=== PATIENT | female | born 1970 | race Caucasian/White ===

== ENCOUNTER 2017-05-11 18:16 | Emergency (ER) | payer BC ==
[~2017-05-11] VITALS: Ht 172.7 cm; Wt 108.9 kg
[~2017-05-11 18:16] MED LIST: ADVAIR 250-501 EACH; ANTIVERT25 MG PO; BACTRIM DS TAB1 EACH PO; BENTYL20 MG PO; BYSTOLIC 5 MG5 M1 PO; CARAFATE 1 GM TA1 GM PO; CARISOPRODOL 3350 M1 PO; CEFUROXIME250 MG PO; CELEXA40 MG; CEPHALEXIN 500500 M3 PO; CEPHALEXIN500 MG PO; CITRATE OF MAG300 ML PO; CYCLOBENZAPRINE5 MG PO; DEPAKOTE 250MG250 M1 PO; DILTIAZEM 24HR120 MG PO; DOXYCYCLINE 10100 M1 PO; DUONEB 2.5-0.5 M3 ML INH; FLEXERIL PO; FLONASE 0.05%50 MCG NASAL; HYDROCODONE-AP1 EAC6 PO; HYDROCODONE-APA1 TA1 PO; HYDROXYZINE HCL25 M1; KEFLEX500 MG PO; LASIX 20 MG TAB20 MG PO; LASIX 40 MG TAB40 M2 PO; LATUDA120 MG PO; LATUDA80 MG PO; LEVAQUIN 750 M750 MG PO; LEXAPRO20 MG PO; LOPRESSOR25 PO; MEDROLDOSEPACK PO; MINOCIN50 MG PO; MYSOLINE50 MG; NAPROSYN500 MG PO; NEURONTIN 300300 M1 PO; NEURONTIN600 MG PO; NORCO 5-325 TA1 EACH PO; ONDANSETRON HCL4 M2 PO; PEPCID20 MG PO; PERCOCET PO; POTASSIUM20 PO; PRAZOSIN 1 MG CA1 M1 PO; PREDNISONE 10 M10 MG PO; PREDNISONE 20 M20 MG PO; PRILOSEC 20 MG20 MG PO; PROAIR HFA8.5 GM INH; PROMETHAZINE/C118 ML PO; PROTONIX 20 MG20 M1 PO; SYMBICORT160 MCG/4. INH; TAMIFLU75 MG PO; TESSALON PERLE100 MG PO; TRAZODONE HCL100 MG PO; VENTOLIN17 GM INH; VICODIN 5-5001 EACH; VIRTUSSIN AC L118 ML PO; XANAX 0.5 MG0.5 MG PO; ZOFRAN ODT4 MG PO; ZOFRAN4 MG PO; ZPAK PO; xolair
[2017-05-11 19:25] LABS: INFLUENZA A ANTIGEN None Detected (None Detect); INFLUENZA B ANTIGEN None Detected (None Detect)
[2017-05-11] MEDS ORDERED: DOXYCYCLINE 10100 MG PO (19:30)
[2017-05-11] MEDS ORDERED: PREDNISONE 10 M10 MG PO (19:30)
[2017-05-11] MEDS ORDERED: TESSALON PERLE100 MG PO (19:30)
[2017-05-11] MEDS ORDERED: VENTOLIN HFA 1818 GM INH (19:30)
[2017-05-11 19:43] VITALS: BP 125/68
== END 2017-05-11 19:45 | disposition home or self-care (01) ==
LOC: M.ERS 18:16
PROVIDERS: Physician Assistant
DX: J40 Bronchitis, not specified as acute or chronic (principal); K58.9 Irritable bowel syndrome, unspecified; F41.9 Anxiety disorder, unspecified; F31.9 Bipolar disorder, unspecified; F43.10 Post-traumatic stress disorder, unspecified; I10 Essential (primary) hypertension; Z86.2 Personal history of diseases of the blood and blood-forming organs and certain disorders involving the immune mechanism; Z90.89 Acquired absence of other organs; Z90.49 Acquired absence of other specified parts of digestive tract; Z88.0 Allergy status to penicillin

== ENCOUNTER 2017-05-24 07:51 | Inpatient (IN) | payer BC ==
[~2017-05-24] VITALS: Ht 172.7 cm; Wt 108.9 kg
[~2017-05-24 07:51] MED LIST changes: +DOXYCYCLINE 10100 MG PO; +VENTOLIN HFA 1818 GM INH
[2017-05-24 07:54] VITALS: BP 129/72
[2017-05-24] MEDS ORDERED: LIPITOR 20 MG T20 M1 PO (08:00)
[2017-05-24 08:14] LABS: HEMATOCRIT 41.4 % (37.0-47.0); HEMOGLOBIN 13.8 gm/dL (12.0-15.0); MCH 28.3 pg (26.0-34.0); MCHC 33.4 g/dL (28.0-37.0); MCV 84.6 fL (80.0-100.0); MPV 7.7 fl. (7.2-11.1); NUCLEATED RBCS 0 /100WBC; PLATELET COUNT* 237 thou/uL (150-400); RBC 4.89 mil/uL (4.20-5.00); RDW-CV 13.8 % (10.5-14.5); WBC 10.9 thou/uL (4.0-11.0)
[2017-05-24 08:17] LABS: ANION GAP 6 mmol/L (7-16); BUN 20 mg/dL (7-18); CALCIUM 8.9 mg/dL (8.5-10.1); CHLORIDE 103 mmol/L (98-107); CO2 34 mmol/L (21-32); CREATININE 0.7 mg/dL (0.6-1.3); GLUCOSE 90 mg/dL (70-99); POTASSIUM 3.2 mmol/L (3.5-5.1); SODIUM 143 mmol/L (136-145)
[2017-05-24 08:19] LABS: INR 1.1; PROTIME 10.5 Seconds (9.20-11.50)
[2017-05-24 08:28] LABS: ALBUMIN 3.6 g/dL (3.4-5.0); ALKALINE PHOSPHATASE 74 U/L (46-116); LIPASE 220 U/L (73-393); NT-PRO BRAIN NAT PEPTIDE 198 pg/mL (<300); SGOT 17 U/L (15-37); SGPT 20 U/L (30-65); TOTAL BILIRUBIN 0.8 mg/dL (<0.1-1.0); TOTAL PROTEIN 7.1 g/dL (6.4-8.2); TROPONIN-I LEVEL <0.06 ng/mL (<0.06)
[2017-05-24 08:38] LABS: ABSOLUTE EOSINOPHILS 0.1 thou/uL (0.0-0.7); ABSOLUTE LYMPHOCYTES 1.2 thou/uL (0.8-5.3); ABSOLUTE MONOCYTES 0.2 thou/uL (0.0-1.2); ABSOLUTE NEUTROPHILS 9.4 thou/uL (1.6-8.1); PLATELET ESTIMATE ADEQUATE
[2017-05-24 10:30] VITALS: BP 124/64
--- NOTE | 2017-05-24 12:55 | EKG ---
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: MS : 1970 Requested By: Richar Galicia Order Number: [id number] MD: Minesh Rowland Measurements Intervals [place] Rate: 62 P: 38 [place]: 166 QRS: -2 QRSD: 105 T: 39 QT: 419 QTc: 426 Interpretive Statements Sinus rhythm Borderline T wave abnormalities Compared to ECG 01/21/2017 12:20:03 t wave changes less prominent Electronically Signed On 05-24-2017 12:55:19 GLUING MACHINE OPERATOR ELECTRONIC by Minesh Rowland [email or web address] <ELECTRONICALLY SIGNED> By: Minesh Rowland MD, [facility] 05/24/17 1255 0755 0755 Minesh Rowland MD, [facility] /EPI
[2017-05-24 15:39] VITALS: BP 130/77
--- NOTE | 2017-05-24 15:58 | 2DMMODE ---
[place] [address] 2 D/M-MODE ECHOCARDIOGRAM Name: NYASIA BOND Room: [address] IN [facility]#: [id number] Admission: 05/24/17 Attend Phys: Sanjay Denney, Discharge: Date of : 70 Date of Service: 05/24/17 1558 Report #: [id number] THIS REPORT FOR: //name// APPROVED REPORT Study performed: 05/24/2017 11:39:15 EXAM: Comprehensive 2D, Doppler, and color-flow Echocardiogram Patient Location: In-Patient Room #: 209 BSA: 2.19 HR: 52 bpm BP: 124/64 mmHg Other Information Study Quality: Good Indications Chest Pain 2D Dimensions LVEF(%): 76.76 (>50%) IVSd: 10.79 (7-11mm) LVOT Diam: 20.93 (18-24mm) LVDd: 57.56 mm PWd: 9.79 (7-11mm) Ascending Ao: 32.23 (22-36mm) LVDs: 31.04 (25-40mm) Aortic Root: 30.58 mm Toribio's LVEF: 76.76 % Volumes Left Atrial Volume (Systole) LA ESV Index: 31.00 mL/m2 Aortic Valve AoV Peak Rangel.: 1.61 m/s AO Peak Gr.: 10.33 mmHg LVOT Max P.20 mmHg AO Mean Gr.: 5.61 mmHg LVOT Mean P.41 mmHg LVOT Max V: 1.14 m/s AO V2 VTI: 39.53 cm LVOT Mean V: 0.70 m/s STEPHANIE (VTI): 2.53 cm2 LVOT V1 VTI: 29.08 cm Mitral Valve E/A Ratio: 1.37 MV Decel. Time: 217.55 [place] [address] 2 D/M-MODE ECHOCARDIOGRAM Name: NYASIA BOND Room: [address] IN .R.#: [id number] Admission: 05/24/17 Attend Phys: Sanjay Denney, Discharge: Date of : 70 Date of Service: 05/24/17 1558 Report #: [id number] MV E Max Rangel.: 0.85 m/s MV PHT: 63.09 ms MVA (PHT): 3.49 cm2 TDI E/Lateral E': 7.73 E/Medial E': 8.50 Medial E' Rangel.: 0.10 m/s Lateral E' Rangel.: 0.11 m/s Pulmonary Valve PV Peak Rangel.: 0.98 m/s PV Peak Gr.: 3.82 mmHg Tricuspid Valve TR Peak Gr.: 24.38 mmHg RVSP: 29.38 mmHg Left Ventricle The left ventricle is normal size. There is normal LV segmental wall motion. There is normal left ventricular wall thickness. Left ventricular systolic function is normal. LVEF is 55-60%. The left ventricular diastolic function is normal. Right Ventricle The right ventricle is normal size. The right ventricular systolic function is normal. Atria The left atrium size is normal. The right atrium size is normal. Aortic Valve The aortic valve is normal in structure. Trace aortic regurgitation. There is no aortic valvular stenosis. Mitral Valve The mitral valve is normal in structure. Mild mitral regurgitation. No evidence of mitral valve stenosis. Tricuspid Valve The tricuspid valve is normal in structure. Mild tricuspid regurgitation. The RVSP is __29.4 mmHg. Pulmonic Valve The pulmonary valve is normal in structure. There is no pulmonic valvular regurgitation[place] [address] 2 D/M-MODE ECHOCARDIOGRAM Name: NYASIA BOND [facility] Room: [address] IN .R.#: [id number] Admission: 05/24/17 Attend Phys: Sanjay Denney, Discharge: Date of : 70 Date of Service: 05/24/17 1558 Report #: [id number] The aortic root is normal in size. IVC is normal in size and collapses with >50% inspiration Pericardium There is no pericardial effusion. <Conclusion> The left ventricle is normal size. There is normal left ventricular wall thickness. Left ventricular systolic function is normal. LVEF is 55-60%. The left ventricular diastolic function is normal. Mild tricuspid regurgitation. The RVSP is __29.4 mmHg. Mild mitral regurgitation. <ELECTRONICALLY SIGNED> By: Blanco Dickerson MD, FACC 05/24/17 1558 1558 1558 Blanco Dickerson MD, FACC /INF
[2017-05-24 20:20] VITALS: BP 126/60
[2017-05-24] MEDS ORDERED: CEFUROXIME500 MG PO (23:06)
[2017-05-25] VITALS (10 sets, daily range): BP systolic 91–123; BP diastolic 36–63
[2017-05-25 05:13] LABS: ABSOLUTE EOSINOPHILS 0.1 thou/uL (0.0-0.7); ABSOLUTE LYMPHOCYTES 4.3 thou/uL (0.8-5.3); ABSOLUTE MONOCYTES 0.5 thou/uL (0.0-1.2); ABSOLUTE NEUTROPHILS 4.8 thou/uL (1.6-8.1); BASOPHILS 0.2 %; EOSINOPHILS 0.8 %; HEMATOCRIT 35.5 % (37.0-47.0); LYMPHOCYTES 44.4 %; MCH 28.2 pg (26.0-34.0); MCHC 33.2 g/dL (28.0-37.0); MCV 84.8 fL (80.0-100.0); MONOCYTES 4.8 %; MPV 8.4 fl. (7.2-11.1); NUCLEATED RBCS 0 /100WBC; PLATELET COUNT* 213 thou/uL (150-400); POLYS 49.8 %; RBC 4.19 mil/uL (4.20-5.00); RDW-CV 14.4 % (10.5-14.5); WBC 9.6 thou/uL (4.0-11.0)
[2017-05-25 05:22] LABS: APTT 26.3 Seconds (25.0-31.3); INR 1.1; PROTIME 10.4 Seconds (9.20-11.50)
[2017-05-25 05:27] LABS: HEMOGLOBIN 11.8 gm/dL (12.0-15.0)
[2017-05-25 05:45] LABS: ANION GAP 8 mmol/L (7-16); BUN 18 mg/dL (7-18); CALCIUM 8.6 mg/dL (8.5-10.1); CHLORIDE 105 mmol/L (98-107); CHOLESTEROL 159 mg/dL (<200); CO2 30 mmol/L (21-32); CREATININE 0.7 mg/dL (0.6-1.3); GLUCOSE 88 mg/dL (70-99); HDL CHOLESTEROL 54 mg/dL (>40); LDL CHOLESTEROL 94 mg/dL (<100); POTASSIUM 3.9 mmol/L (3.5-5.1); SODIUM 143 mmol/L (136-145); TC:HDL 2.9 Ratio (Not establshd); TRIGLYCERIDE 55 mg/dL (<150); VLDL 11 mg/dL (<40)
[2017-05-25 05:52] LABS: SERUM ASSESSMENT Clear
--- NOTE | 2017-05-25 17:39 | EKG ---
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: MAX : 1970 Requested By: Minesh Rowland Order Number: [id number] Haris MD: Blanco Dickerson Measurements Intervals [place] Rate: 47 P: 27 [place]: 171 QRS: 8 QRSD: 106 T: 30 QT: 500 QTc: 442 Interpretive Statements Sinus bradycardia Compared to ECG 05/24/2017 07:55:22 Sinus rhythm no longer present T-wave abnormality no longer present Electronically Signed On 05-25-2017 17:39:03 FITNESS STUDIES TEACHER by Blanco Dickerson [email or web address] <ELECTRONICALLY SIGNED> By: Blanco Dickerson MD, [facility] 05/25/17 1739 1637 1637 Blanco Dickerson MD, [facility] /EPI
[2017-05-26] VITALS (7 sets, daily range): BP systolic 89–106; BP diastolic 33–49
[2017-05-26 05:07] LABS: ABSOLUTE EOSINOPHILS 0.1 thou/uL (0.0-0.7); ABSOLUTE LYMPHOCYTES 2.8 thou/uL (0.8-5.3); ABSOLUTE MONOCYTES 0.3 thou/uL (0.0-1.2); ABSOLUTE NEUTROPHILS 3.4 thou/uL (1.6-8.1); BASOPHILS 0.4 %; EOSINOPHILS 1.5 %; HEMATOCRIT 34.7 % (37.0-47.0); HEMOGLOBIN 11.6 gm/dL (12.0-15.0); LYMPHOCYTES 41.7 %; MCH 28.6 pg (26.0-34.0); MCHC 33.4 g/dL (28.0-37.0); MCV 85.5 fL (80.0-100.0); MONOCYTES 4.8 %; MPV 7.9 fl. (7.2-11.1); NUCLEATED RBCS 0 /100WBC; PLATELET COUNT* 187 thou/uL (150-400); POLYS 51.6 %; RBC 4.06 mil/uL (4.20-5.00); RDW-CV 14.1 % (10.5-14.5); WBC 6.6 thou/uL (4.0-11.0)
--- NOTE | 2017-05-26 11:32 | CARD ---
[address] [address] CARDIAC CATH REPORT Name: VARUNNYASIA Room: 209 ADM IN .R.#: [id number] Admission: 05/24/17 Attend Phys: Sanjay Denney MD Discharge: Date of : 70 Report #: [id number] THIS REPORT FOR: //name// APPROVED REPORT Patient Details Patient Status: In-Patient Room #: 209 The patient is a 46 year-old female Event Personnel Minesh Rowland Railway Signal Electrician, Kathryn Grace RN RN, Laura Jimenes RN Monitor, Jeremías Bueno Scrub Procedures Performed Art Access - R radial artery , Right transradial approach, PTCA with Stenting, Left Ventriculogram, Left Heart Catheterization Indication Unstable angina , Positive stress test Risk Factors Hypercholesterolemia Admission/Lab Medications/Medications given during procedure Heparin Unfract., [place] [address] units Procedure Narrative The patient was brought electively to the Cardiac Catheterization Laboratory and was prepped and draped in a sterile manner. The right wrist was infiltrated with 1% Lidocaine subcutaneous anesthesia. A Slender Glidesheath sheath was inserted into the right radial artery. Coronary angiography was performed using coronary diagnostic catheters. The right coronary system was accessed and visualized with a JR4 5fr catheter. The left coronary system was accessed and visualized with a JL 3.5 5fr catheter. The left ventricle was accessed and visualized with a PC: Angled Pig 5fr catheter. Left ventricular/Aortic Valve gradient assessed via catheter pullback. Left ventriculogram was performed in CARLSON projection. Closure device was deployed with a 6 Fr Vasc-Band Lng 27cm. The patient tolerated the procedure well and there were no complications associated with the procedure. There was no hematoma. Intraoperative Conscious Sedation Sedation start time: 3:29 Case end Time: [place] [address] CARDIAC CATH REPORT Name: VARUNNYASIA MICHAEL Room: [address] IN [facility]#: [id number] Admission: 05/24/17 Attend Phys: Sanjay Denney MD Discharge: Date of : 70 Report #: [id number] 4:13 Fentanyl 50 mcg Versed 2 mg Fluoro Time: 6.8 minutes Dose: DAP 46477 cGycm2 140 mGy Contrast Type and Amount: Omnipaque 145 ml Coronary Angiography The patient's coronary anatomy is co- dominant. Yocha Dehe Artery Percent Stenosis Left Main: 0 % Prox LAD: 0 % Mid/Distal LAD: 80 % Circumflex: 0 % RCA: 0 % Ramus: % Left Ventriculography The left ventricle is normal in size with normal contractility. The left ventricular ejection fraction is estimated to be 55-60%. Left ventricular wall motion abnormalities are not present. There is no mitral insufficiency. Hemodynamics The aortic pressure is 104/60 mmHg with a mean of 79 mmHg. The left ventricular pressure is 93/3 mmHg with a mean of mmHg. The left ventricular end diastolic pressure is 6 mmHg. There was no gradient across the aortic valve upon pullback. Pullback from the left ventricle to the aorta revealed no gradient across the aortic valve. PCI Technique Lesion Anticoagulation was achieved with Heparin. pt was preloaded with 180 mg brilinta po Patient was preloaded with Heparin IV. Percutaneous coronary intervention was performed on the mid left anterior descending artery segment. The lesion stenosis prior to intervention was 80% with RICARDO 2 flow. A 6FR XB LAD 3.0 100CM Guide Catheter was used to engage the lm ostium. A IG: BMW 190cm Interventional Guidewire was used to cross the lesion. STENT DEPLOYMENT A drug-eluting stent Xience Alpine RX 3.0X15 was inserted and inflated up to 14.00atm for 20seconds. Repeat angiography revealed the following post-stent deployment results: 0% stenosis. Additional Inflation: 18.00atm for 14seconds. Final angiography reveals 0 % stenosis with RICARDO 3 [place] [address] CARDIAC CATH REPORT Name: NYASIA BOND Room: [address] IN .R.#: [id number] Admission: 05/24/17 Attend Phys: Sanjay Denney MD Discharge: Date of : 70 Report #: [id number] Conclusion 1. successful placement of a single drug eluting stent in the mid lad Recommendations Cardiac Rehabilitation Referral Aggressive Medical Therapy Medications Administered Ticagrelor <ELECTRONICALLY SIGNED> By: Minesh Rowland MD, [facility] 05/26/17 1131 1131 1131Dsofi Rowland MD, [facility] /INF
[2017-05-26] MEDS ORDERED: CEFUROXIME500 MG PO (13:24)
[2017-05-26] MEDS ORDERED: NITROGLYCERIN0.4 MG SUBLING (13:31)
[2017-05-26] MEDS ORDERED: BRILINTA90 MG PO (13:33)
[2017-05-26] MEDS ORDERED: LISINOPRIL20 MG PO (13:36)
--- NOTE | 2017-06-16 14:45 | EKG ---
[place] [address] ELECTROCARDIOGRAM REPORT Name: NYASIA BOND Room: [address] DIS IN M.R.#: [id number] Admission: 05/24/17 Attend Phys: Sanjay Denney MD Discharge: 05/26/17 Date of : 70 Report #: [id number] THIS REPORT FOR: //name// [facility] Test Date: 2017-05-26 Test Time: 08:28:44 Pat Name: NYASIA BOND Department: Room: [address] Gender: F Chocolate Finisher: : 1970 Requested By: Minesh Rowland Order Number: [id number] Reading MD: Measurements Intervals [place] Rate: 49 P: 33 [place]: 174 QRS: 9 QRSD: 117 T: 29 QT: 479 QTc: 433 Interpretive Statements Sinus bradycardia Nonspecific intraventricular conduction delay Compared to ECG 05/25/2017 16:37:42 Intraventricular conduction delay now present [email or web address] By: 1538 0828 Blanco Dickerson MD, FACC /EPI
== END 2017-05-26 13:42 | disposition home or self-care (01) | DRG 247 ==
LOC: M.ERS 07:51 → M.2W 09:48 → M.TBA-ER 09:48 → M.2W 10:42
PROVIDERS: Emergency Medicine; Internal Medicine Cardiovascular Disease; Nurse Practitioner Family; ADMIT Internal Medicine
PROC: 4A023N7 Measurement of Cardiac Sampling and Pressure, Left Heart, Percutaneous Approach (ICD-10-PCS; principal; 2017-05-26)
PROC: B2151ZZ Fluoroscopy of Left Heart using Low Osmolar Contrast (ICD-10-PCS; principal; 2017-05-26)
PROC: B2111ZZ Fluoroscopy of Multiple Coronary Arteries using Low Osmolar Contrast (ICD-10-PCS; principal; 2017-05-26)
PROC: 027034Z Dilation of Coronary Artery, One Artery with Drug-eluting Intraluminal Device, Percutaneous Approach (ICD-10-PCS; principal; 2017-05-26)
DX: I25.110 Atherosclerotic heart disease of native coronary artery with unstable angina pectoris (principal); J45.909 Unspecified asthma, uncomplicated; G89.29 Other chronic pain; M54.9 Dorsalgia, unspecified; F41.9 Anxiety disorder, unspecified; F31.9 Bipolar disorder, unspecified; K59.00 Constipation, unspecified; F43.10 Post-traumatic stress disorder, unspecified; I10 Essential (primary) hypertension; E78.5 Hyperlipidemia, unspecified; E66.9 Obesity, unspecified; Z68.36 Body mass index [BMI] 36.0-36.9, adult; Z90.49 Acquired absence of other specified parts of digestive tract; Z98.84 Bariatric surgery status; Z79.899 Other long term (current) drug therapy; Z88.0 Allergy status to penicillin

== ENCOUNTER 2017-06-10 14:51 | Inpatient (IN) | payer BC ==
[~2017-06-10] VITALS: Ht 172.7 cm; Wt 110.7 kg
[~2017-06-10 14:51] MED LIST changes: +BRILINTA90 MG PO; +CEFUROXIME500 MG PO; +LIPITOR 20 MG T20 M1 PO; +LISINOPRIL20 MG PO; +NITROGLYCERIN0.4 MG SUBLING
[2017-06-10 14:56] VITALS: BP 129/64; BP 170/88
[2017-06-10 15:36] LABS: ABSOLUTE EOSINOPHILS 0.2 thou/uL (0.0-0.7); ABSOLUTE LYMPHOCYTES 2.4 thou/uL (0.8-5.3); ABSOLUTE MONOCYTES 0.4 thou/uL (0.0-1.2); ABSOLUTE NEUTROPHILS 4.6 thou/uL (1.6-8.1); BASOPHILS 0.6 %; EOSINOPHILS 2.2 %; HEMATOCRIT 41.5 % (37.0-47.0); HEMOGLOBIN 13.8 gm/dL (12.0-15.0); LYMPHOCYTES 31.7 %; MCH 28.6 pg (26.0-34.0); MCHC 33.3 g/dL (28.0-37.0); MCV 85.9 fL (80.0-100.0); MONOCYTES 4.6 %; MPV 8.4 fl. (7.2-11.1); NUCLEATED RBCS 0 /100WBC; PLATELET COUNT* 229 thou/uL (150-400); POLYS 60.9 %; RBC 4.83 mil/uL (4.20-5.00); RDW-CV 14.4 % (10.5-14.5); WBC 7.6 thou/uL (4.0-11.0)
[2017-06-10 15:41] LABS: ANION GAP 7 mmol/L (7-16); APTT 26.6 Seconds (25.0-31.3); BUN 14 mg/dL (7-18); CALCIUM 9.3 mg/dL (8.5-10.1); CHLORIDE 105 mmol/L (98-107); CO2 32 mmol/L (21-32); CREATININE 0.8 mg/dL (0.6-1.3); GLUCOSE 66 mg/dL (70-99); POTASSIUM 3.5 mmol/L (3.5-5.1); PROTIME 9.9 Seconds (9.20-11.50); SODIUM 144 mmol/L (136-145)
[2017-06-10 15:52] LABS: ALBUMIN 4.2 g/dL (3.4-5.0); ALKALINE PHOSPHATASE 82 U/L (46-116); NT-PRO BRAIN NAT PEPTIDE 30 pg/mL (<300); SGOT 19 U/L (15-37); SGPT 17 U/L (30-65); TOTAL BILIRUBIN 0.6 mg/dL (<0.1-1.0); TOTAL PROTEIN 7.8 g/dL (6.4-8.2); TROPONIN-I LEVEL <0.06 ng/mL (<0.06)
[2017-06-10 20:03] VITALS: BP 118/71
[2017-06-10 21:00] VITALS: BP 118/38
[2017-06-10] MEDS ORDERED: XANAX 0.5 MG0.5 MG PO (23:17)
[2017-06-10] MEDS ORDERED: VICODIN ES 7.51 EACH PO (23:17)
[2017-06-10] MEDS ORDERED: OMEPRAZOLE 20 M20 M1 PO (23:18)
[2017-06-11] VITALS: BP 110/45
[2017-06-11 04:00] VITALS: BP 109/55
[2017-06-11 05:08] LABS: ABSOLUTE EOSINOPHILS 0.2 thou/uL (0.0-0.7); ABSOLUTE LYMPHOCYTES 2.9 thou/uL (0.8-5.3); ABSOLUTE MONOCYTES 0.3 thou/uL (0.0-1.2); ABSOLUTE NEUTROPHILS 2.9 thou/uL (1.6-8.1); BASOPHILS 0.3 %; EOSINOPHILS 2.4 %; HEMATOCRIT 35.8 % (37.0-47.0); LYMPHOCYTES 47.1 %; MCH 28.3 pg (26.0-34.0); MCHC 32.8 g/dL (28.0-37.0); MCV 86.1 fL (80.0-100.0); MONOCYTES 4.2 %; MPV 8.5 fl. (7.2-11.1); NUCLEATED RBCS 0 /100WBC; PLATELET COUNT* 197 thou/uL (150-400); RBC 4.16 mil/uL (4.20-5.00); RDW-CV 14.7 % (10.5-14.5); WBC 6.2 thou/uL (4.0-11.0)
--- NOTE | 2017-06-11 05:10 | NUR ---
RECEIVED REPORT FROM ER NURSE, CHOCO ROJAS, AT 1947. PT ARRIVED TO UNIT AT 1999. PT ORIENTED TO ROOM AND CALL LIGHT. NURSING ASSESSMENT COMPLETED, NIH SCORE 0 THIS SHIFT. PT ON TELE MONITOR TRACING SINUS RHTYHM THIS SHIFT. PT STATES SENSATION ON LEFT SIDE FACE DECREASING SINCE ADMIT. UNABLE TO FULLY EXPLAIN FEELING BUT STATED IT DID NOT FEEL NUMB. VITAL SIGNS STABLE THIS SHIFT, BEDSIDE SWALLOW ASSESSMENT PASSED, CALL LIGHT WITHIN REACH.
[2017-06-11 05:22] LABS: CALCIUM 8.8 mg/dL (8.5-10.1); CREATININE 0.8 mg/dL (0.6-1.3); POTASSIUM 3.8 mmol/L (3.5-5.1)
[2017-06-11 05:37] LABS: CHOLESTEROL 128 mg/dL (<200); HDL CHOLESTEROL 50 mg/dL (>40); LDL CHOLESTEROL 67 mg/dL (<100); TC:HDL 2.6 Ratio (Not establshd); TRIGLYCERIDE 59 mg/dL (<150); VLDL 12 mg/dL (<40)
[2017-06-11 05:48] LABS: SERUM ASSESSMENT CLEAR
[2017-06-11 05:50] LABS: HEMOGLOBIN 11.7 gm/dL (12.0-15.0)
--- NOTE | 2017-06-11 07:30 | NUR ---
CHANGE OF SHIFT, BEDSIDE REPORT GIVEN ASSUMED PATIENT CARE PATIENT SEEN IN BED, REQUESTS PAIN MEDICATION FOR GONG WILL CONTACT DR SNOW RANGER AND GIVE ADORE
[2017-06-11 08:00] VITALS: BP 103/54
[2017-06-11 12:22] VITALS: BP 119/50
--- NOTE | 2017-06-11 12:37 | EKG ---
[place] [address] ELECTROCARDIOGRAM REPORT Name: NYASIA BOND Room: [address] ADM IN ..#: [id number] Admission: 06/10/17 Attend Phys: Sanjay Denney MD Discharge: Date of : 70 Report #: [id number] THIS REPORT FOR: //name// [facility] ED Test Date: 2017-06-10 Test Time: 15:23:30 Pat Name: NYASIA BOND Department: Room: [facility] Gender: F Fine Dining Server: Riky TRACY : 1970 Requested By: Vero Hargrove Order Number: [id number] MD: Junito Patel Measurements Intervals [place] Rate: 63 P: 18 MA: 200 QRS: -3 QRSD: 105 T: 33 QT: 436 QTc: 447 Interpretive Statements Sinus rhythm Compared to ECG 05/26/2017 08:28:44 Sinus bradycardia no longer present T-wave abnormality no longer present Electronically Signed On 06-11-2017 12:37:14 CDT by Junito Patel [email or web address] <ELECTRONICALLY SIGNED> By: Junito Patel MD, [facility] 06/11/17 1237 1523 1523 Junito Patel MD, [facility] /EPI
[2017-06-11 12:48] VITALS: BP 119/50
--- NOTE | 2017-06-11 13:15 | NUR ---
PATIENT DCD TO HOME ALL DC INSTRUCTIONS GIVEN AND ACKNOWLEDGED SIGNED COPIES GIVEN IV AND HEART MONITOR REMOVED PERSONAL BELONGINGS RETURNED ASSISTED OUT VIA WC TO [facility] 3scale
--- NOTE | 2017-06-11 13:18 | NUR ---
OT SCREENS PT FOR OT SERVICES. PHYSICAL THERAPY REPORTS PT IS INDEPENDENT WITH AMBULATING AND SAFE AND NURSING REPORTS THAT PT IS INDEPENDENT WITH ADLS WITHIN THE ROOM. OT TALKS WITH PT TO MAKE SURE SHE DOES NOT HAVE ANY CONCERNS AND CHECKS SENSATION IN BOTH UE- HAS FULL SENSATION. OT EVALUATION IS NOT WARRENTED AT THIS TIME, BUT PLEASE CONSULT WITH OT IF THERE IS A CHANGE IN STATUS.
[2017-06-11 23:07] LABS: GLYCOHEMOGLOBIN (HGB A1C) 5.2 % (4.8-5.6)
--- NOTE | 2017-06-16 19:10 | CON ---
[address] [address] CONSULTATION Name: NYASIA BOND Room: [address] IN M.R.#: [id number] Admission: 06/10/17 Attend Phys: Sanjay Denney MD Discharge: 06/11/17 Date of : 70 Report #: [id number] THIS REPORT FOR: //name// CC: Sanjay Mendez DATE OF SERVICE: 06/11/2017 HISTORY OF PRESENT ILLNESS: This is a 46-year-old female patient who was evaluated by me because she had an episode where she had some headache as well as left-sided facial numbness. She indicates she has a longstanding history of migraine, but she usually does not have any neurological symptoms with that, but this time, she had headache. She had left facial numbness. She had some difficulty with swallowing and some ataxia. All the symptoms have resolved. When she had these symptoms, she had pretty severe symptoms. It started spontaneously without any trauma. REVIEW OF SYSTEMS: Indicate that this patient had a recent stent put in. She has been started on statin. She does have a history of plantar fasciitis, anxiety, depression, bipolar disorder. She said she had a uterine ablation now. She also had a gastric sleeve in the past. She does not know why she is developing coronary artery disease at such a young age, but indicate that she does have a family history of that. I carried out the 14-point review of system and this was the relevant 14-point review of system in this patient. PAST MEDICAL HISTORY: Positive for stent put in. FAMILY HISTORY: Positive for vascular disease. SOCIAL HISTORY: She does not smoke or drink any alcohol. PHYSICAL EXAMINATION: NEUROLOGIC: Indicate that this patient is alert and responsive. This patient's speech, concentration, fund of knowledge and memory is at her baseline. Cranial nerve examination 2-12 is unremarkable. She has a symmetrical strength, sensation, reflexes and tone in all 4 extremities. There is no meningeal sign. There is no carotid bruit. There is no cerebellar sign. There is no papilledema. GENERAL: She is reasonably well-developed individual who does not have any dysmorphic features of eyes, ears and face. HEENT: Her vision and hearing looks adequate. CARDIAC: Unremarkable. LUNGS: No respiratory difficulty or rhonchi. VITAL SIGNS: Her blood pressure is 103/54, respirations 18, pulse is 58, temperature is 98.7. [place] [address] CONSULTATION Name: NYASIA BOND Room: [address]#: [id number] Admission: 06/10/17 Attend Phys: Sanjay Denney MD Discharge: 06/11/17 Date of : 70 Report #: [id number] LABORATORY DATA: Indicate that one time, her CRP was 291. IMPRESSION: This patient episode may be related to her migraine. Possibility of posterior fossa transient ischemic attack was considered, but so far the workup is unremarkable. RECOMMENDATION: I had a long discussion with the patient. I discussed with her the indication, potential complications and alternative of multiple approaches. I discussed with her that the most accurate test to rule out the possibility of aneurysms or any pathology is an angiogram. But we discussed potential complication of that with the patient and she understands it and she is happy with the accuracy of the MRA and wants to skip the angiogram. I did discuss with her that she needs some further workup because of premature atherosclerotic disease, at least in the coronary artery. I would like to do homocysteine level in this patient, but that has to be done as an outpatient because of hospital policy. I asked her to make an appointment with us sometime next week and I would like to do KEVON, rheumatoid factor, sed rate, cardiolipin antibodies, homocysteine screening in this patient. She is already on statin and she is already on antiplatelet therapy, so I really do not think we need to do much until the blood workup shows something. She is agreeable with this plan. From my perspective, she can be dismissed and can follow up with me next week to get additional blood workup done and if she has any more episodes, she should call 911 and come to Emergency Room. More than 50 minutes of time was spent taking care of this patient today and majority of that time was spent counseling this patient on above matters and making the above plan. Thank you very much for this referral. <ELECTRONICALLY SIGNED> By: Neal Bryan MD 06/16/17 1910 1140 1217Neal Bryan MD /nt
== END 2017-06-11 13:30 | disposition home or self-care (01) | DRG 69 ==
LOC: M.ERS 14:51 → M.TBA-ER 17:21 → M.2W 20:21
PROVIDERS: Nurse Practitioner Family; ADMIT Internal Medicine
DX: G45.9 Transient cerebral ischemic attack, unspecified (principal); G43.909 Migraine, unspecified, not intractable, without status migrainosus; I25.10 Atherosclerotic heart disease of native coronary artery without angina pectoris; F31.9 Bipolar disorder, unspecified; F41.9 Anxiety disorder, unspecified; I10 Essential (primary) hypertension; F43.10 Post-traumatic stress disorder, unspecified; Z88.0 Allergy status to penicillin; Z95.5 Presence of coronary angioplasty implant and graft

== ENCOUNTER 2017-06-30 21:32 | Inpatient (IN) | payer BC ==
[~2017-06-30] VITALS: Ht 172.7 cm; Wt 117.9 kg
[~2017-06-30 21:32] MED LIST changes: +OMEPRAZOLE 20 M20 M1 PO; +VICODIN ES 7.51 EACH PO
[2017-06-30 21:34] VITALS: BP 139/71
[2017-06-30] MEDS ORDERED: ASPIR 8181 M1 PO (21:39)
[2017-06-30 22:02] LABS: ABSOLUTE EOSINOPHILS 0.1 thou/uL (0.0-0.7); ABSOLUTE LYMPHOCYTES 2.8 thou/uL (0.8-5.3); ABSOLUTE MONOCYTES 0.5 thou/uL (0.0-1.2); ABSOLUTE NEUTROPHILS 3.8 thou/uL (1.6-8.1); BASOPHILS 0.5 %; EOSINOPHILS 1.8 %; HEMATOCRIT 36.1 % (37.0-47.0); LYMPHOCYTES 38.3 %; MCH 28.5 pg (26.0-34.0); MCHC 33.3 g/dL (28.0-37.0); MCV 85.7 fL (80.0-100.0); MONOCYTES 6.6 %; MPV 7.9 fl. (7.2-11.1); NUCLEATED RBCS 0 /100WBC; PLATELET COUNT* 219 thou/uL (150-400); POLYS 52.8 %; RBC 4.21 mil/uL (4.20-5.00); RDW-CV 14.3 % (10.5-14.5); WBC 7.3 thou/uL (4.0-11.0)
[2017-06-30 22:09] LABS: ANION GAP 4 mmol/L (7-16); BUN 20 mg/dL (7-18); CALCIUM 8.8 mg/dL (8.5-10.1); CHLORIDE 106 mmol/L (98-107); CO2 31 mmol/L (21-32); CREATININE 0.7 mg/dL (0.6-1.3); GLUCOSE 96 mg/dL (70-99); POTASSIUM 3.4 mmol/L (3.5-5.1); SODIUM 141 mmol/L (136-145)
[2017-06-30 22:19] LABS: ALBUMIN 3.3 g/dL (3.4-5.0); ALKALINE PHOSPHATASE 71 U/L (46-116); LIPASE 222 U/L (73-393); MAGNESIUM 1.9 mg/dL (1.8-2.4); NT-PRO BRAIN NAT PEPTIDE 154 pg/mL (<300); SGOT 14 U/L (15-37); SGPT 16 U/L (30-65); TOTAL BILIRUBIN 0.7 mg/dL (<0.1-1.0); TOTAL PROTEIN 6.6 g/dL (6.4-8.2); TROPONIN-I LEVEL <0.06 ng/mL (<0.06)
[2017-06-30 23:23] VITALS: BP 110/77
[2017-07-01] VITALS: BP 136/51
[2017-07-01 03:39] VITALS: BP 113/42
--- NOTE | 2017-07-01 04:31 | NUR ---
END SHIFT: PT RESTED WELL. C/O CHEST PRESSURE RELIEVED BY IV PAIN MEDICATION. NO OTHER COMPLAINTS. 2L NC ON PER PROTOCOL. SR/SB ON MONITOR. NO ECTOPY. HAS REMAINED NPO SINCE [place] AWAITING CARDS CONSULT. ASSESSMENT UNCHANGED. VSS. PERFORMED HOURLY ROUNDING. SAFETY PRECAUTIONS IN PLACE. CALL LIGHT IN REACH. WILL CONT TO MONITOR.
[2017-07-01 08:00] VITALS: BP 93/47
[2017-07-01 12:00] VITALS: BP 106/51
--- NOTE | 2017-07-01 14:27 | EKG ---
[place] [address] ELECTROCARDIOGRAM REPORT Name: NYASIA BOND Room: [address] ADM IN .R.#: [id number] Admission: 06/30/17 Attend Phys: Art Stack Discharge: Date of : 70 Report #: [id number] THIS REPORT FOR: //name// [facility] ED Test Date: 2017-06-30 Test Time: 21:35:53 Pat Name: NYASIA BOND Department: Room: [facility] Gender: F Curing Bin Operator: JEANETTE : 1970 Requested By: Kendell Augustin Order Number: [id number] MD: Junito Patel Measurements Intervals [place] Rate: 58 P: 54 [place]: 173 QRS: 4 QRSD: 109 T: 33 QT: 452 QTc: 445 Interpretive Statements Sinus rhythm Baseline wander in lead(s) II,III,aVF Compared to ECG 06/10/2017 15:23:30 No significant changes Electronically Signed On 07-01-2017 14:27:38 CDT by Junito Patel [email or web address] <ELECTRONICALLY SIGNED> By: Junito Patel MD, [facility] 07/01/17 1427 2135 2135 Junito Patel MD, [facility] /EPI
--- NOTE | 2017-07-01 15:47 | CON ---
[facility] [address] [place] [address] CONSULTATION Name: NYASIA BOND Room: [address] IN M.R.#: [id number] Admission: 06/30/17 Attend Phys: Art Stack Discharge: Date of : 70 Report #: [id number] THIS REPORT FOR: //name// CC: Jeremías Hicks DATE OF SERVICE: 07/01/2017 PRIMARY CARE PHYSICIAN: Jeremías Mendez DO. [place]OSSBAND LAYER: Minesh Rowland MD [facility]. CHIEF COMPLAINT: Chest pain. HISTORY OF PRESENT ILLNESS: The patient is a 46-year-old female who had a PCI to her LAD approximately 2 weeks ago at this hospital. She was driving home yesterday and had a chest discomfort in her left scapula radiating to her chest for about 5-15 minutes long. She took 1 nitro and her symptoms were not improved. She then took a nitroglycerin in the parking lot of the hospital and then, symptoms are still not improved. Came into the Emergency Room and her ECG did not show acute ST segment changes. She was admitted for observation and today, her cardiac troponin levels are normal. She is still having a heaviness. It is still left-sided, it is not associated with activity. She never had any symptoms with activity. She had been discharged on aspirin, Brilinta, has not missed any doses. She cannot relate that her symptoms are associated with any wheezing after taking her Brilinta. She denies associated symptoms, palpitations, orthopnea, PND or edema. PAST MEDICAL HISTORY: She underwent a PCI on 05/24/2017 to an 80% mid to distal LAD stenosis. Right coronary artery and circumflex were unremarkable. It was a drug-eluting stent. She has normal LV function. She has hyperlipidemia, anxiety, depression, irritable bowel syndrome, plantar fasciitis, and history of nonspecific palpitations. PAST SURGICAL HISTORY: Prior cholecystectomy, PCI. FAMILY HISTORY: Negative. SOCIAL HISTORY: She is a nonsmoker. ALLERGIES: SHE HAS ALLERGIES TO PENICILLIN. REVIEW OF SYSTEMS: GASTROINTESTINAL: No nausea or vomiting, no change with meals. HEMATOLOGIC: No anemia [place] [address] CONSULTATION Name: NYASIA BOND MICHAEL Room: [address]#: [id number] Admission: 06/30/17 Attend Phys: Art Stack Discharge: Date of : 70 Report #: [id number] RENAL: No kidney failure, no edema. MUSCULOSKELETAL: No joint pain. SKIN: No rashes. GENERAL: No fevers or chills. CARDIOVASCULAR: Positive chest pain. No shortness of breath, no orthopnea, no PND, no edema. PULMONARY: No wheezing or asthma. PHYSICAL EXAMINATION: VITAL SIGNS: Blood pressure is 113/42, pulse is 48. Overnight though, her heart rates were in the 60s, temperature is 36.8. GENERAL: Pleasant, mildly obese adult female. She is alert, resting comfortably. HEENT: EOMs intact. No facial asymmetry. NECK: Supple. No jugular venous distention. Upstrokes are normal. CARDIOVASCULAR: Regular. I cannot hear a rub or gallop. LUNGS: Clear to auscultation. ABDOMEN: Soft, nontender. EXTREMITIES: No peripheral edema. SKIN: Warm and dry. Electrocardiogram on presentation shows a sinus rhythm 58, T-wave inversion V1 only, KS and ST segments are normal. LABORATORY DATA: Her cardiac troponin level is 0.06 x 3 sets. D-dimer is 0.20. Hemoglobin is 12.0. IMAGING: Chest x-ray shows no acute cardiopulmonary abnormality. IMPRESSION: 1. Chest pain. She has ruled out for an acute myocardial infarction. Her ECG is unremarkable. Her symptoms could be related to pericarditis or less likely a pulmonary embolus. There was a slight D-dimer elevation, but she has been mobile and anticoagulated. At this point in time, I would like to treat her with anti-inflammatories and continue with cardiac telemetry monitoring. 2. Coronary artery disease. If she continues to have symptoms despite anti-inflammatory therapy, I will go ahead and plan for her to have a heart catheterization. 3. Hyperlipidemia. We will continue with statin therapy. <ELECTRONICALLY SIGNED> By: Junito Patel MD, FACC 07/01/17 1547 0950 1227Junito Patel MD, FACC /nt
--- NOTE | 2017-07-01 16:15 | NUR ---
PT UP IN ROOM WITH STEADY GAIT. PT CONTINUES TO REPORT CHEST PAIN THROUGHOUT SHIFT-NSR. PT CONTROLLED WITH TORADOL AND MORPHINE.
[2017-07-01 16:30] VITALS: BP 108/60
--- NOTE | 2017-07-01 16:40 | NUR ---
CM SPOKE TO THE PATIENT TO DISCUSS HOEM SITUATION, DISCHARGE PLANNING, AND TO INFORM OF THE ROLE OF CM. PATIENT ALERY AND ORIENTED. PATIENT INDEPENDENT AND ACTIVE PRIOR TO ADMISSION. PATIENT RESIDES AT HOME WITH SPOUSE AND CHILDREN. PATIENT OWNS A CPAP, BUT DOES NOT USE. PATIENT HAS NO HX OF OR SNF. CM WILL REMAIN AVIALABLE TO ASSIST AND FOLLOW NEEDED.
[2017-07-01 19:40] VITALS: BP 101/53
[2017-07-02 00:38] VITALS: BP 96/43
[2017-07-02 04:00] VITALS: BP 96/46
--- NOTE | 2017-07-02 05:53 | NUR ---
END SHIFT: PT RESTED WELL. NO COMPLAINTS. NO PAIN. UP SELF WITH NO DIFFICULTY. ASSESSMENT UNCHANGED. VSS. AWAITING DC HOME TODAY. SAFETY PRECAUTIONS IN PLACE. CALL LIGHT IN REACH. PERFORMED HOURLY ROUNDING WILL CONT TO MONITOR.
[2017-07-02 08:21] VITALS: BP 97/56
[2017-07-02 11:30] VITALS: BP 110/44
[2017-07-02 11:48] VITALS: BP 97/56
[2017-07-02] MEDS ORDERED: IBUPROFEN 600600 M1 PO (12:17)
[2017-07-02 13:00] VITALS: BP 97/56
== END 2017-07-02 13:50 | disposition home or self-care (01) | DRG 316 ==
LOC: M.ERS 21:32 → M.TBA-ER 22:42 → M.2W 22:42
PROVIDERS: Emergency Medicine Emergency Medical Services; ADMIT Internal Medicine
DX: I31.9 Disease of pericardium, unspecified (principal); J45.909 Unspecified asthma, uncomplicated; F31.9 Bipolar disorder, unspecified; G89.29 Other chronic pain; M54.9 Dorsalgia, unspecified; F41.9 Anxiety disorder, unspecified; I25.10 Atherosclerotic heart disease of native coronary artery without angina pectoris; K59.00 Constipation, unspecified; F43.10 Post-traumatic stress disorder, unspecified; I10 Essential (primary) hypertension; E78.5 Hyperlipidemia, unspecified; Z88.0 Allergy status to penicillin; Z90.49 Acquired absence of other specified parts of digestive tract; Z95.5 Presence of coronary angioplasty implant and graft

== ENCOUNTER 2017-09-24 10:26 | Emergency (ER) | payer OTHER ==
[~2017-09-24] VITALS: Ht 177.8 cm; Wt 108.4 kg
[~2017-09-24 10:26] MED LIST changes: +ASPIR 8181 M1 PO; +IBUPROFEN 600600 M1 PO
[2017-09-24 11:02] LABS: HEMATOCRIT 38.8 % (37.0-47.0); MCH 28.7 pg (26.0-34.0); MCHC 33.4 g/dL (28.0-37.0); MCV 85.9 fL (80.0-100.0); MPV 7.3 fl. (7.2-11.1); NUCLEATED RBCS 0 /100WBC; PLATELET COUNT* 205 thou/uL (150-400); RBC 4.52 mil/uL (4.20-5.00); RDW-CV 14.2 % (10.5-14.5); WBC 8.2 thou/uL (4.0-11.0)
[2017-09-24 11:21] LABS: ANION GAP 4 mmol/L (7-16); BUN 15 mg/dL (7-18); CALCIUM 8.9 mg/dL (8.5-10.1); CHLORIDE 103 mmol/L (98-107); CO2 30 mmol/L (21-32); CREATININE 0.6 mg/dL (0.6-1.3); GLUCOSE 104 mg/dL (70-99); POTASSIUM 4.1 mmol/L (3.5-5.1); SODIUM 137 mmol/L (136-145)
[2017-09-24 11:26] LABS: ALBUMIN 3.6 g/dL (3.4-5.0); ALKALINE PHOSPHATASE 76 U/L (46-116); LIPASE 199 U/L (73-393); SGOT 28 U/L (15-37); SGPT 31 U/L (30-65); TOTAL BILIRUBIN 1.3 mg/dL (<0.1-1.0); TOTAL PROTEIN 6.9 g/dL (6.4-8.2); TROPONIN-I LEVEL <0.06 ng/mL (<0.06)
[2017-09-24 11:49] LABS: ABSOLUTE LYMPHOCYTES 0.4 thou/uL (0.8-5.3); ABSOLUTE MONOCYTES 0.1 thou/uL (0.0-1.2); ABSOLUTE NEUTROPHILS 7.7 thou/uL (1.6-8.1); PLATELET ESTIMATE ADEQUATE
[2017-09-24 13:05] LABS: URINE BILIRUBIN NEGATIVE (Negative); URINE BLOOD NEGATIVE (Negative); URINE CLARITY CLEAR; URINE COLOR YELLOW; URINE GLUCOSE-RANDOM NEGATIVE (Negative); URINE KETONES NEGATIVE (Negative); URINE LEUKOCYTES-REFLEX NEGATIVE (Negative); URINE NITRITE-REFLEX NEGATIVE (Negative); URINE PROTEIN TRACE (Negative); URINE SPECIFIC GRAVITY >= 1.030 (1.005-1.030); URINE UROBILINOGEN 0.2 E.U./dl (0.2-1.0)
[2017-09-24] MEDS ORDERED: PHENERGAN 25 MG25 M1 PO (13:21)
[2017-09-24 13:38] VITALS: BP 105/60
--- NOTE | 2017-09-25 13:58 | EKG ---
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 : 1970 Requested By: Crystal Heard Order Number: [id number] MD: Minesh Rowland Measurements Intervals [place] Rate: 80 P: 39 AR: 177 QRS: -6 QRSD: 105 T: 21 QT: 382 QTc: 441 Interpretive Statements Sinus rhythm Borderline T abnormalities, anterior leads Compared to ECG 06/30/2017 21:35:53 T-wave abnormality now present Electronically Signed On 09-25-2017 13:58:14 CDT by Minesh Rowland [email or web address] <ELECTRONICALLY SIGNED> By: Minesh Rowland MD, [facility] 09/25/17 1358 1046 1046 Minesh Rowland MD, [facility] /EPI
== END 2017-09-24 13:39 | disposition home or self-care (01) ==
LOC: M.ERS 10:26
PROVIDERS: Physician Assistant
DX: R53.1 Weakness (principal); R42 Dizziness and giddiness; J45.909 Unspecified asthma, uncomplicated; F41.9 Anxiety disorder, unspecified; F31.9 Bipolar disorder, unspecified; F43.10 Post-traumatic stress disorder, unspecified; I10 Essential (primary) hypertension; Z90.49 Acquired absence of other specified parts of digestive tract; Z90.89 Acquired absence of other organs; Z86.2 Personal history of diseases of the blood and blood-forming organs and certain disorders involving the immune mechanism; Z88.0 Allergy status to penicillin

== ENCOUNTER 2018-10-05 03:06 | Observation (INO) | payer OTHER ==
[2018-10-05] VITALS (7 sets, daily range): BP systolic 94–118; BP diastolic 36–59
[~2018-10-05] VITALS: Ht 172.7 cm; Wt 129.5 kg
[~2018-10-05 03:06] MED LIST changes: +PHENERGAN 25 MG25 M1 PO
[2018-10-05] MEDS ORDERED: TOPROL XL25 MG PO (03:15)
[2018-10-05 03:33] LABS: ABSOLUTE EOSINOPHILS 0.2 thou/uL (0.0-0.7); ABSOLUTE LYMPHOCYTES 2.7 thou/uL (0.8-5.3); ABSOLUTE MONOCYTES 0.4 thou/uL (0.0-1.2); ABSOLUTE NEUTROPHILS 3.9 thou/uL (1.6-8.1); BASOPHILS 0.4 %; EOSINOPHILS 2.3 %; HEMATOCRIT 34.7 % (37.0-47.0); HEMOGLOBIN 11.3 gm/dL (12.0-15.0); LYMPHOCYTES 37.4 %; MCH 28.2 pg (26.0-34.0); MCHC 32.7 g/dL (28.0-37.0); MCV 86.2 fL (80.0-100.0); MONOCYTES 6.2 %; MPV 7.8 fl. (7.2-11.1); NUCLEATED RBCS 0 /100WBC; PLATELET COUNT* 187 thou/uL (150-400); POLYS 53.7 %; RBC 4.02 mil/uL (4.20-5.00); RDW-CV 13.1 % (10.5-14.5); WBC 7.2 thou/uL (4.0-11.0)
[2018-10-05 03:53] LABS: ANION GAP 0 mmol/L (7-16); BUN 18 mg/dL (7-18); CALCIUM 8.9 mg/dL (8.5-10.1); CHLORIDE 106 mmol/L (98-107); CO2 34 mmol/L (21-32); CREATININE 0.8 mg/dL (0.6-1.3); GLUCOSE 101 mg/dL (70-99); SODIUM 140 mmol/L (136-145)
[2018-10-05 03:55] LABS: PROTIME 9.9 Seconds (9.20-11.50)
[2018-10-05 04:03] LABS: ALKALINE PHOSPHATASE 55 U/L (46-116); LIPASE 277 U/L (73-393); NT-PRO BRAIN NAT PEPTIDE 15 pg/mL (<300); SGOT 18 U/L (15-37); SGPT 24 U/L (30-65); TOTAL BILIRUBIN 0.4 mg/dL (<0.1-1.0); TOTAL PROTEIN 5.9 g/dL (6.4-8.2); TROPONIN-I LEVEL <0.06 ng/mL (<0.06)
--- NOTE | 2018-10-05 05:51 | NUR ---
PATIENT ARRIVED ON UNNIT AT APPROX 0530. ALERT AND ORIENTED TIMES FOUR. LICENSED NUCLEAR CONTROL ROOM OPERATOR ASSESSMENT COMPLETED DOCUMENTED. SINUS BARRERA ON THE MONITOR. UP INDEPENDENTLY IN ROOM. LIVES AT HOME WITH SPOUSE AND CHILDREN. DISCUSSED WITH PATIENT SOME OF THE THINGS THAT MAY BRING ON CHEST PAIN AND PATIENT STATED "IT MAY HAVE BEEN THE STRESS, MY FAMILY AND I WERE LOOING FOR SOMETHING IMPORTANT ALL DAY AND WE FINALLY FOUND IT" WILL CONTINUE TO MONITOR
--- NOTE | 2018-10-05 08:45 | NUR ---
ASSUMED CARE AFTER REPORT. A&OX4. ABLE TO COMMUNICATE NEEDS TO STAFF. PRODUCT INTRODUCTION MANAGER IN PLACE, SB. O2 SAT 96% RA. C/O CHEST PAIN 06/28. EDUCATION GIVEN TO REPORT INCREASE IN INTENSITY OR CHARACTERISTIC. PATIENT AGREEABLE TO PLAN OF CARE. UP TO BR AD MODESTA WITH STEADY GAIT. CALL LIGHT IN REACH. HOURLY ROUNDING FOR SAFETY AND PATIENT NEEDS.
--- NOTE | 2018-10-05 11:24 | NUR ---
Pt is A&O. Resides at home with and kids. Active and independent. Pt has a home cpap, does not use. No other DME. No hx of HH or SNF. Pt having a cath later today. Goal is home at ri. Following.
--- NOTE | 2018-10-05 14:01 | 2DMMODE ---
[place] [address] 2 D/M-MODE ECHOCARDIOGRAM Name: NYASIA BOND Room: [address] ADM IN [facility]#: [id number] Admission: 10/05/18 Attend Phys: Jeremías Bray, Discharge: Date of : 70 Date of Service: 10/05/18 1400 Report #: [id number] THIS REPORT FOR: //name// APPROVED REPORT Study performed: 10/05/2018 09:09:28 EXAM: Comprehensive 2D, Doppler, and color-flow Echocardiogram Patient Location: In-Patient Room #: 204 Status: routine BSA: 2.29 HR: 45 bpm BP: 102/59 mmHg Rhythm: NSR Other Information Study Quality: Good Indications Chest Pain 2D Dimensions IVSd: 10.48 (7-11mm) LVOT Diam: 21.51 (18-24mm) LVDd: 51.25 mm PWd: 9.42 (7-11mm) Ascending Ao: 30.97 (22-36mm) LVDs: 27.39 (25-40mm) Aortic Root: 31.14 mm Volumes Left Atrial Volume (Systole) LA ESV Index: 38.80 mL/m2 Aortic Valve AoV Peak Rangel.: 1.38 m/s AO Peak Gr.: 7.56 mmHg LVOT Max P.10 mmHg AO Mean Gr.: 4.35 mmHg LVOT Mean P.35 mmHg LVOT Max V: 1.13 m/s AO V2 VTI: 37.30 cm LVOT Mean V: 0.70 m/s STEPHANIE (VTI): 2.98 cm2 LVOT V1 VTI: 30.55 cm Mitral Valve E/A Ratio: 1.28 MV Decel. Time: 240.35 ms MV E Max Rangel.: 0.77 m/[place] [address] 2 D/M-MODE ECHOCARDIOGRAM Name: NYASIA BOND Room: [address] IN .R.#: [id number] Admission: 10/05/18 Attend Phys: Jeremías Bray, Discharge: Date of : 70 Date of Service: 10/05/18 1400 Report #: [id number] MV PHT: 69.70 ms MVA (PHT): 3.16 cm2 TDI E/Lateral E': 5.50 E/Medial E': 7.00 Medial E' Rangel.: 0.11 m/s Lateral E' Rangel.: 0.14 m/s Pulmonary Valve PV Peak Rangel.: 0.82 m/s PV Peak Gr.: 2.70 mmHg Tricuspid Valve RAP Estimate: 5.00 mmHg TR Peak Gr.: 21.42 mmHg RVSP: 26.00 mmHg PA Pressure: 26.00 mmHg Left Ventricle The left ventricle is normal size. There is normal LV segmental wall motion. There is normal left ventricular wall thickness. Left ventricular systolic function is normal. The left ventricular ejection fraction is within the normal range. LVEF is 60-65%. The left ventricular diastolic function is normal. Right Ventricle The right ventricle is normal size. The right ventricular systolic function is normal. Atria The left atrium size is normal The right atrium size is normal. Aortic Valve The aortic valve is normal in structure. No aortic regurgitation is present. There is no aortic valvular stenosis. Mitral Valve The mitral valve is normal in structure. There is no mitral valve regurgitation noted. No evidence of mitral valve stenosis. Tricuspid Valve The tricuspid valve is normal in structure. Trace tricuspid regurgitation. No pulmonary hypertension. Pulmonic Valve The pulmonary valve is normal in structure. [place] [address] 2 D/M-MODE ECHOCARDIOGRAM Name: NYASIA BOND MICHAEL Room: [address] IN [facility]#: [id number] Admission: 10/05/18 Attend Phys: Jeremías Bray, Discharge: Date of : 70 Date of Service: 10/05/18 1400 Report #: [id number] Great Vessels The aortic root is normal in size. IVC is normal in size and collapses >50% with inspiration. Pericardium There is no pericardial effusion. <Conclusion> The left ventricle is normal size. There is normal left ventricular wall thickness. Left ventricular systolic function is normal. The left ventricular ejection fraction is within the normal range. LVEF is 60-65%. The left ventricular diastolic function is normal. The right ventricle is normal size. The left atrium size is normal The aortic valve is normal in structure. The mitral valve is normal in structure. The tricuspid valve is normal in structure. IVC is normal in size and collapses >50% with inspiration. There is no pericardial effusion. There is normal LV segmental wall motion. <ELECTRONICALLY SIGNED> By: Marcelo Bedoya MD, FACC 10/05/18 1400 1400 99 Marcelo Bedoya MD, FACC /INF
--- NOTE | 2018-10-05 16:29 | EKG ---
[place] [address] ELECTROCARDIOGRAM REPORT Name: NYASIA BOND Room: [address] ADM IN .R.#: [id number] Admission: 10/05/18 Attend Phys: Jeremías Bray MD Discharge: Date of : 70 Report #: [id number] THIS REPORT FOR: //name// [facility] ED Test Date: 2018-10-05 Test Time: 03:09:36 Pat Name: NYASIA BOND Department: Room: [facility] Gender: F Pony Edger: [place] : 1970 Requested By: Crystal Allred Order Number: [id number] MD: Blanco Dickerson Measurements Intervals [place] Rate: 51 P: 37 PA: 185 QRS: 12 QRSD: 109 T: 45 QT: 455 QTc: 420 Interpretive Statements Sinus rhythm RSR' in V1 or V2, probably normal variant Compared to ECG 09/24/2017 10:46:43 RSR' in V1 or V2 now present T-wave abnormality no longer present Electronically Signed On 10-05-2018 16:29:36 CDT by Blanco Dickerson [email or web address] <ELECTRONICALLY SIGNED> By: Blanco Dickerson MD, FACC 10/05/18 1629 0309 0309 Blanco Dickerson MD, [facility] /EPI
--- NOTE | 2018-10-05 20:00 | NUR ---
RECEIVED REPORT AND ASSUMED CARE OF PT, ASSESSMENT COMPLETED. PT DENIES CP AT THIS TIME, NO SOB NOTED. TELEMETRY ON SHOWING SB. BP LOW 94/36, PT STATES THIS IS CLOSE TO HER NORMAL. WILL CONT TO MONITOR AND ASSIST NEEDED.
[2018-10-06 00:17] VITALS: BP 106/43
[2018-10-06 04:00] VITALS: BP 97/41
--- NOTE | 2018-10-06 06:00 | NUR ---
SLEPT WELL. NPO SINCE [place] FOR COMPLETION OF STRESS TEST. GAIT STEADY TO AND FROM BR. BP REMAINS LOW. TELEMETRY CONT TO SHOW SB. HS GOALS OF REST AND SAFETY ACHIEVED. HOURLY ROUNDING OBSERVED.
[2018-10-06 07:52] VITALS: BP 97/47
--- NOTE | 2018-10-06 08:41 | NUR ---
ASSUMED CARE OF PT AT 0730. PT RESTING IN BED. PT A&0X4, DENIES ANY PAIN OR SHORTNESS OF BREATH AT THIS TIME. PT TRACING SB ON THE CONTINUOUS PROCESS TANNER ROTARY DRUM. RATE IN THE 50'S. PT ON RA SAT 95%. PT UP AD MODESTA IN ROOM. PT NPO FOR CARDIOLOGY CONSULT- PLAN IS FOR STRESS TEST TODAY. PT GOAL FOR TODAY IS TO COMPLETE STRESS TEST, HAVE ECHO, REMAIN FREE FROM CHEST PAIN AND DISCHARGE PLANNING TO HOME. AM ASSESSMENT CHARTED. MEDICATIONS PER MAY. PT REPOSITIONS SELF. HOURLY ROUNDING OBSERVED. BED IN LOW POSITION. CALL LIGHT WITHIN REACH. WILL CONTINUE PLAN OF CARE.
[2018-10-06] MEDS ORDERED: PROTONIX40 M1 PO (09:40)
[2018-10-06 10:12] VITALS: BP 97/47
[2018-10-06 11:30] VITALS: BP 90/37
--- NOTE | 2018-10-06 16:29 | CARDNUC ---
[place] [address] CARDIAC NUCLEAR IMAGING REPORT Name: NYASIA BOND Room: [address] M.R.#: [id number] Admission: 10/05/18 Attend Phys: Jeremías Bray, Discharge: Date of : 70 Date of Service: 10/06/18 1629 Report #: [id number] THIS REPORT FOR: //name// APPROVED REPORT Study performed: 10/05/2018 11:10:00 Indication: Chest pain Patient Location: In-Patient Room #: 204 Stress Tech: Poonam Blount Stress Nurse: Marcella Caballero RN Ht: 5 ft 8 in Wt: 261 lbs BSA: 2.29 m2 BMI: 39.68 Medical History Medical History: cad, hyperlipidemia Medications: asa-81, atorvastatin, ntg, metoprolol Allergies: pcn, bridgette Cardiac Risk Factors: hyperlipidemia, family hx Previous Cardiac Procedures: pci Exercise History: Physically active Meds Held (24 hrs): metoprolol Resting Data Rest SPECT myocardial perfusion imaging was performed in supine position 30 minutes following the intravenous injection of 41.5 mCi of Tc-99m Sestamibi. Time of rest injection: 1400 Date: 10/05/2018 The images were gated to evaluate regional wall motion and calculate left ventricular ejection fraction. Administration Route: IV Administration Site: Right AC Pharmacologic Stress Pharmacologic stress test was performed by injecting Regadenoson 0.4 mg IV push over 10-15 seconds immediately followed by the intravenous injection of 36.9 mCi of Tc-99m Sestamibi. Time of stress injection: 09:35 Date: 10/06/2018 Administration Route: IV Administration Site: Right AC Heart Rate at time of stress injection: 81 bpm. Gated Stress SPECT was performed 45 minutes [place] [address] CARDIAC NUCLEAR IMAGING REPORT Name: NYASIA BOND Room: [address] M.R.#: [id number] Admission: 10/05/18 Attend Phys: Jeremías Bray, Discharge: Date of : 70 Date of Service: 10/06/18 1629 Report #: [id number] The images were gated to evaluate regional wall motion and calculate left ventricular ejection fraction. Stress Test Details Stress Test: Pharmacologic stress testing performed using 0.4 mg of regadenoson per 5 mL given IV over 10 seconds. Reason for pharmacologic stress test: physical limitation. HR Max Heart Rate (APMHR): 172 bpm Resting HR: 59 bpm Target HR (85% APMHR): 146 bpm Max HR Achieved: 81 bpm % of APMHR: 47 Recovery HR: 71 bpm BP Resting BP: 97/62 mmHg Max BP: 117/49 mmHg Recovery BP: 115/62 mmHg ECG Resting ECG: Sinus Rhythm Stress ECG: Sinus Rhythm ST Change: None Arrhythmia: None Recovery ECG: Sinus Rhythm Recovery ST Change: None Recovery Arrhythmia: None Clinical Reason for Termination: Completed protocol Exercise duration: 0 min sec Exercise capacity: 1 METs The patient tolerated Lexiscan infusion without significant symptoms. Nurse Comments pt unable to walk on treadmill due to bad hip Stress ECG Conclusion The baseline 12-lead EKG showed sinus rhythm with no significant ST or T-wave abnormalities. EKGs obtained during and post Lexiscan infusion show sinus rhythm with no significant ST or T wave changes when her to baseline. There were no stress-induced arrhythmias. Study Quality Study: [place] [address] CARDIAC NUCLEAR IMAGING REPORT Name: NYASIA BOND MICHAEL Room: [address]#: [id number] Admission: 10/05/18 Attend Phys: Jeremías Bray, Discharge: Date of : 70 Date of Service: 10/06/18 1629 Report #: [id number] Artifact: Moderate Breast artifact Study Data Post stress, the left ventricular ejection was 67%.. Perfusion Review of the raw data show significant breast attenuation artifact. Review of the raw data shows fairly normal global perfusion. Wall Motion Normal left ventricular wall motion. Nuclear Conclusion ECG Findings: negative for ischemia Clinical Findings: negative for ischemia Nuclear Findings: negative for ischemia Exercise Capacity: not assessed Left Ventricular Function: normal Risk Study: low Perfusion images show some photopenia in the anterior wall due to breast attenuation artifact. Significant fixed or reversible defects are not identified. Global LV systolic function is normal on gated studies. This is a low risk study. <Conclusion> The baseline 12-lead EKG showed sinus rhythm with no significant ST or T-wave abnormalities. EKGs obtained during and post Lexiscan infusion show sinus rhythm with no significant ST or T wave changes when her to baseline. There were no stress-induced arrhythmias. <ELECTRONICALLY SIGNED> By: Blanco Dickerson MD, FACC 10/06/18 1629 1629 1629 Blanco Dickerson MD, FACC /INF
--- NOTE | 2018-10-06 16:49 | NUR ---
CARDIOLOGY CALLED WITH STRESS TEST RESSULTS- RESULTS NEGATIVE- OK FOR DISCHARGE. DISCHARGE ORDERS RECEIVED. DISCHARGE INSTRUCTIONS, CARE NOTES, SCRIPTS AND FOLLOW UP APPTS GIVEN TO PT. PT COMMUNICATES UNDERSTANDING OF DISCHARGE TEACHING. IV AND CHIEF OPERATOR REMOVED. PT DISCHARGED WITH ALL BELONGINGS AND PAPERWORK VIA WHEELCHAIR WITH NURSING STAFF TO SPOUSE OWN PERSONAL VEHICLE.
--- NOTE | 2018-10-07 12:18 | CON ---
[address] [address] CONSULTATION Name: NYASIA BOND Room: [address] Vicki Anderson#: [id number] Admission: 10/05/18 Attend Phys: Jeremías Bray MD Discharge: 10/06/18 Date of : 70 Report #: [id number] THIS REPORT FOR: //name// CC: Jeremías Bray DATE OF SERVICE: 10/05/2018 CARDIOLOGY CONSULTATION HISTORY OF PRESENT ILLNESS: The patient is a 48-year-old female with a history of coronary artery disease status post stenting of the LAD in 2018. She presented with chest discomfort after it awakened her at approximately 2:00 this morning. It was a bubble-like sensation in the epigastrium, which expanded. It has been present off and on since that time with some waxing and waning. It is not pleuritic. She denied any chest pain prior to her stenting and thus it is unclear that this is reflective of ischemia. She does have risk factors for coronary artery disease including hypercholesterolemia and a family history of premature coronary artery disease. MEDICATIONS: Include aspirin, atorvastatin, metoprolol, sublingual nitroglycerin and noncardiac medicines include alprazolam, Lexapro, gabapentin, ibuprofen and trazodone. PAST MEDICAL HISTORY: Remarkable for asthma, chronic back pain, bipolar, depression, hypertension. Prior surgeries include tonsillectomy, uterine ablation, tympanoplasty, and cholecystectomy. FAMILY HISTORY: Coronary artery disease in maternal grandparents. 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 REVIEW OF SYSTEMS: Remarkable for the following positives: RESPIRATORY: She notes occasional cough. CARDIOVASCULAR: She has a history of prior stenting. ALLERGIC AND IMMUNOLOGIC: She notes medication ALLERGIES TO PENICILLIN. MUSCULOSKELETAL: She notes mild arthritic complaints. SKIN: Occasional rashes. ENT: She has dentures. PHYSICAL EXAMINATION: GENERAL: Reveals a moderately overweight, middle-aged female in no acute distress. VITAL SIGNS: Blood pressure 140/70, pulse rate 74, respirations are 18 [place] [address] CONSULTATION Name: NYASIA BOND MICHAEL Room: [address]#: [id number] Admission: 10/05/18 Attend Phys: Jeremías Bray MD Discharge: 10/06/18 Date of : 70 Report #: [id number]. NECK: Jugular venous pressure is normal. CHEST: Clear. CARDIAC: Reveals normal first and second heart sounds without rubs, murmurs or gallops. ABDOMEN: Moderately obese. EXTREMITIES: Without edema with intact peripheral pulses. RADIOLOGIC DATA: EKG reveals sinus rhythm with no acute ischemic changes. There is a mildly bradycardic rate. Troponin I is unremarkable. IMPRESSION: 1. Atypical chest pain. 2. Coronary artery disease, status post prior stenting of the left anterior descending. 3. Positive family history of premature coronary artery disease. 4. Hypercholesterolemia. 5. Weight excess. RECOMMENDATIONS: Though the pain is atypical, the patient does have a history of prior LAD stenting with atypical symptoms. In this context, I would recommend proceeding with stress Cardiolite evaluation to address the presence or absence of inducible ischemia. In the interim, I would not recommend any alterations in therapy until we can review the results of the stress Cardiolite evaluation. <ELECTRONICALLY SIGNED> By: Marcelo Bedoya MD, FACC 10/07/18 1218 1620 [id number] Bedoya MD, FACC /nt
== END 2018-10-06 16:50 | disposition home or self-care (01) ==
LOC: M.ERS 03:06 → M.2W 04:40 → M.TBA-ER 04:40 → M.2W 04:57
PROVIDERS: Personal Emergency Response Attendant; ADMIT Internal Medicine
DX: R07.9 Chest pain, unspecified (principal); I25.10 Atherosclerotic heart disease of native coronary artery without angina pectoris; G89.29 Other chronic pain; M54.9 Dorsalgia, unspecified; K58.9 Irritable bowel syndrome, unspecified; F31.9 Bipolar disorder, unspecified; D50.0 Iron deficiency anemia secondary to blood loss (chronic); E78.5 Hyperlipidemia, unspecified; I10 Essential (primary) hypertension; F41.9 Anxiety disorder, unspecified; Z86.73 Personal history of transient ischemic attack (TIA), and cerebral infarction without residual deficits; Z79.82 Long term (current) use of aspirin; Z79.899 Other long term (current) drug therapy; Z95.5 Presence of coronary angioplasty implant and graft

== ENCOUNTER 2019-01-01 22:46 | Inpatient (IN) | payer OTHER ==
[~2019-01-01] VITALS: Ht 172.7 cm; Wt 122.5 kg
[~2019-01-01 22:46] MED LIST changes: +PROTONIX40 M1 PO; +TOPROL XL25 MG PO
[2019-01-01 22:51] VITALS: BP 143/87
[2019-01-01 23:15] LABS: URINE BILIRUBIN NEGATIVE (Negative); URINE BLOOD NEGATIVE (Negative); URINE CLARITY CLEAR; URINE COLOR YELLOW; URINE GLUCOSE-RANDOM NEGATIVE (Negative); URINE KETONES NEGATIVE (Negative); URINE LEUKOCYTES-REFLEX NEGATIVE (Negative); URINE NITRITE-REFLEX NEGATIVE (Negative); URINE PROTEIN NEGATIVE (Negative); URINE SPECIFIC GRAVITY <= 1.005 (1.005-1.030); URINE UROBILINOGEN 0.2 E.U./dl (0.2-1.0)
[2019-01-01 23:15] LABS: ABSOLUTE EOSINOPHILS 0.2 thou/uL (0.0-0.7); ABSOLUTE LYMPHOCYTES 2.9 thou/uL (0.8-5.3); ABSOLUTE MONOCYTES 0.5 thou/uL (0.0-1.2); ABSOLUTE NEUTROPHILS 4.8 thou/uL (1.6-8.1); BASOPHILS 0.5 %; EOSINOPHILS 1.8 %; HEMOGLOBIN 13.4 gm/dL (12.0-15.0); LYMPHOCYTES 34.8 %; MCH 28.5 pg (26.0-34.0); MCHC 33.5 g/dL (28.0-37.0); MCV 84.9 fL (80.0-100.0); MONOCYTES 5.8 %; MPV 7.5 fl. (7.2-11.1); NUCLEATED RBCS 0 /100WBC; PLATELET COUNT* 285 thou/uL (150-400); POLYS 57.1 %; RBC 4.72 mil/uL (4.20-5.00); RDW-CV 12.9 % (10.5-14.5); WBC 8.4 thou/uL (4.0-11.0)
[2019-01-01 23:28] LABS: CALCIUM 9.8 mg/dL (8.5-10.1); CREATININE 0.7 mg/dL (0.6-1.3); POTASSIUM 4.2 mmol/L (3.5-5.1)
[2019-01-01 23:33] LABS: ALBUMIN 3.9 g/dL (3.4-5.0); TOTAL BILIRUBIN 0.2 mg/dL (<0.1-1.0); TOTAL PROTEIN 7.7 g/dL (6.4-8.2)
[2019-01-02 01:30] LABS: AMP/METHAMP Negative (Negative); BARBITURATES Negative (Negative); BENZODIAZEPINES Negative (Negative); COCAINE Negative (Negative); METHADONE Negative (Negative); OPIATES Negative (Negative); PCP Negative (Negative); THC Negative (Negative)
[2019-01-02 02:19] VITALS: BP 116/52
[2019-01-02 02:40] VITALS: BP 132/48
[2019-01-02 04:17] VITALS: BP 105/49
--- NOTE | 2019-01-02 04:53 | NUR ---
RECEIVED PT FROM ER PER CART ACCOMPANIED BY CARY WILHELM AT APPROX 0230. PT IS AWAKE AND ORIENTED X4. VSS ON ROOM AIR. PT DENIES NAUSEA AND VOMITING AT THIS TIME. PT STATED PARTIAL RELIEF OF PAIN AND DID NOT NEED PAIN MEDS OF THE MOMENT. PT IS ADVISED TO HAVE NOTHING BY MOUTH. PT ORIENTED ON THE USE OF CALL LIGHT AND ON ROOM SET UP. CALL LIGHT WITHIN REACH. HOURLY ROUNDING DONE FOR SAFETY.
[2019-01-02 08:40] VITALS: BP 129/67
--- NOTE | 2019-01-02 13:26 | NUR ---
ASSUMED CARE OF PATIENT AT APPROX 0800. PATIENT TRANSFER FROM TELEMETRY. ALERT AND ORIENTED X4. ASSESSMENT COMPLETED AND CHARTED. VSS ON ROOM AIR. PAIN MANAGED WITH IV MORPHINE. PATIENT ASKED WHEN THE SURGERY DOCTOR WOULD BE COMING TO SEE HER AND ASLO ASKED FOR SOMETHING DIFFERENT FOR NAUSEA. I PAGED THE SURGERY GROUP TO SEE WHEN THEY WOULD BE BY TO SEE THE PATIENT AND TO ASK A FEW QUESTIONS. AFTER NOT RECIEVING A CALL BACK FOR APPROX 2 HOURS, THE NURSING SWIMMING POOL INSTALLER AND SERVICER CALLED DR FARMER DIRECTLY AND I SPOKE WITH HIM. HE STATED THAT THIS WAS NOT EMERGENT AND THAT HE WOULD BE BY TO SEE WHEN PATIENT LSATER TODAY, HE "HAD MORE IMPORTANT THINGS TO DO." THE PATIENT WAS VERY UPSET THAT SHE HAD NOT SEEN ANY PHYSICIANS AT ALL AND STATED THAT SHE EITHER WANTED TO SEE DIFFERENT DOCTORS OR LEAVE AMA. I WENT TO LET MY OUTCOMES SPECIALIST AND SWIMMING POOL INSTALLER AND SERVICER KNOW WHAT WAS HAPPENING. THE ATHLETE MARKETING AGENT INFORMED ME THAT THE PATIENT HAD DECIDED THAT SHE WANTED TO LEAVE AMA AND GO TO [facility]. [facility] CAME TO SPEAK TO THE PATIENT BEFORE SHE LEFT TO DOCUMENT HER CONCERNS. IV DISCONTINUED AND PATIENT LEFT THE HOSPITAL AT 1245.
== END 2019-01-02 12:45 | disposition left against medical advice (07) | DRG 389 ==
LOC: M.ERS 22:46 → M.TBA-ER 01-02 01:29 → M.ORTHSURG 01-02 01:29 → M.2W 01-02 02:30 → M.ORTHSURG 01-02 07:50
PROVIDERS: Emergency Medicine; ADMIT Internal Medicine
DX: K56.609 Unspecified intestinal obstruction, unspecified as to partial versus complete obstruction (principal); Z68.41 Body mass index [BMI] 40.0-44.9, adult; I25.10 Atherosclerotic heart disease of native coronary artery without angina pectoris; J45.909 Unspecified asthma, uncomplicated; K58.9 Irritable bowel syndrome, unspecified; F41.9 Anxiety disorder, unspecified; E66.01 Morbid (severe) obesity due to excess calories; D50.9 Iron deficiency anemia, unspecified; M54.9 Dorsalgia, unspecified; G89.29 Other chronic pain; F31.9 Bipolar disorder, unspecified; F43.10 Post-traumatic stress disorder, unspecified; I10 Essential (primary) hypertension; Z98.84 Bariatric surgery status; Z95.5 Presence of coronary angioplasty implant and graft; Z90.49 Acquired absence of other specified parts of digestive tract; Z79.82 Long term (current) use of aspirin; Z79.899 Other long term (current) drug therapy; Z88.0 Allergy status to penicillin; Z88.8 Allergy status to other drugs, medicaments and biological substances; Z23 Encounter for immunization

== ENCOUNTER 2019-03-24 00:37 | Emergency (ER) | payer OTHER ==
[~2019-03-24] VITALS: Ht 172.7 cm; Wt 118.8 kg
[2019-03-24] MEDS ORDERED: MECLIZINE HCL25 M1 PO (02:09)
[2019-03-24 02:26] VITALS: BP 118/56
== END 2019-03-24 02:28 | disposition home or self-care (01) ==
LOC: M.ERS 00:37
DX: G43.909 Migraine, unspecified, not intractable, without status migrainosus (principal); R42 Dizziness and giddiness; I25.10 Atherosclerotic heart disease of native coronary artery without angina pectoris; J45.909 Unspecified asthma, uncomplicated; G89.29 Other chronic pain; I10 Essential (primary) hypertension; Z90.49 Acquired absence of other specified parts of digestive tract; Z86.2 Personal history of diseases of the blood and blood-forming organs and certain disorders involving the immune mechanism; Z88.0 Allergy status to penicillin; Z88.8 Allergy status to other drugs, medicaments and biological substances